=== PATIENT | female | born 1955 | race Caucasian/White ===

== ENCOUNTER 2024-07-18 06:03 | Day surgery (SDC) | payer MEDICARE ==
[~2024-07-18 06:03] MED LIST: EPINEPHrine 0.3 MG in Ophthalmic Irrigation Solution 500 ML IRR SCH
[2024-07-18] MEDS ORDERED: Lidocaine 1% PF 5 ML VIAL ONE ×2 (06:24→07:02)
[2024-07-18] MEDS ORDERED: Lidocaine 1% MPF 2 ML VIAL ONE (06:31)
[2024-07-18] MEDS ORDERED: Cyclopentolate 1% Opth Drop 2 ML BOT ONE (06:32)
[2024-07-18] MEDS ORDERED: PHENYLephrine 2.5% Ophth Soln 15 ml Bottle ONE (06:32)
[2024-07-18] MEDS ORDERED: fentaNYL 50 mcg/mL 1 mL Vial ONE (06:39)
[2024-07-18] MEDS ORDERED: Midazolam HCl 2 mg/2 ml Vial ONE (06:39)
[2024-07-18] MEDS ORDERED: PROPOFOL 20 ML ONE (06:39)
[2024-07-18] MEDS ORDERED: Sodium Chloride 0.9% 100 ML ONE (06:39)
[2024-07-18] MEDS ORDERED: Ondansetron PF 4 MG/2 ML Vial ONE (06:50)
[2024-07-18] MEDS ORDERED: Triamcinolone 40 MG/ML VIAL ONE (07:02)
[2024-07-18] MEDS ORDERED: CEFAZOLIN 1 GM VIAL ONE (07:02)
[2024-07-18] MEDS ORDERED: Bupivacaine 0.75% 10 ML VIAL ONE (07:02)
[2024-07-18] MEDS ORDERED: Lidocaine 4% PF 5 ML AMP ONE (07:02)
== END 2024-07-18 08:15 | disposition home or self-care (01) ==
LOC: SDC 06:03
PROVIDERS: ATTEND Ophthalmology Retina Specialist
PROC: 08T43ZZ Resection of Right Vitreous, Percutaneous Approach (ICD-10-PCS; principal; 2024-07-18)
PROC: 08NE3ZZ Release Right Retina, Percutaneous Approach (ICD-10-PCS; 2024-07-18)
DX: H43.311 Vitreous membranes and strands, right eye (principal); E78.5 Hyperlipidemia, unspecified; K21.9 Gastro-esophageal reflux disease without esophagitis; F17.200 Nicotine dependence, unspecified, uncomplicated; Z88.0 Allergy status to penicillin; Z98.890 Other specified postprocedural states
CPT/HCPCS: 67041; J0171; J0690; J2250; J2405; J2704; J3010; J3301; J3490